=== PATIENT | female | born 1960 | race Caucasian/White ===

== ENCOUNTER → 2017-09-25 13:43 | Outpatient (CLI) | payer BC, SELFPAY ==
--- NOTE | 2017-09-25 | DI.MG.S_ITS ---
BILATERAL DIGITAL SCREENING MAMMOGRAM 3D/2D WITH CAD: 09/25/2017 CLINICAL: Routine screening. Family history of breast cancer. Comparison is made to exams dated: 04/18/2016 mammogram, 04/17/2015 mammogram, and 04/12/2014 mammogram - [facility]. The tissue of both breasts is predominantly fatty. Current study was also evaluated with a Computer Aided Detection (CAD) system. No significant masses, calcifications, or other findings are seen in either breast. There has been no significant interval change. IMPRESSION: NEGATIVE There is no mammographic evidence of malignancy. A 1 year screening mammogram is recommended. This exam was interpreted at Station ID: [id number]. NOTE: For mammograms, a report in lay terms will be sent to the patient. Approximately 15% of breast malignancies will not be visualized mammographically. In the management of a palpable breast mass, a negative mammogram must not discourage biopsy of a clinically suspicious lesion. Electronically Signed By: Ever horton/mirella:09/25/2017 15:28:19 copy to: Kole Perry letter sent: Normal Exam ACR BI-RADS Category 1: Negative [id number]
== END ==
PROVIDERS: PCP Family Medicine; Visit Provider Family Medicine
DX: Z12.31 Encounter for screening mammogram for malignant neoplasm of breast (principal); Z80.3 Family history of malignant neoplasm of breast
CPT/HCPCS: 77063; 77067

== ENCOUNTER → 2018-07-22 10:56 | Outpatient (CLI) | payer BC, SELFPAY ==
[2018-07-22 11:44] LABS: Add Manual Diff / Slide Review NO; Basophils Absolute Auto 0 /uL (0-100); Basophils Percent Auto 0.2 % (0-2); Eosinophils Absolute Auto 100 /uL (0-450); Eosinophils Percent Auto 2.4 % (2-4); Hemoglobin 14.7 g/dL (12.0-16.0); Lymphocytes Absolute Auto 1500 /uL (1100-4500); Lymphocytes Percent Auto 27.3 % (25-40); Mean Corpuscular HGB Conc 33.3 % (30-36); Mean Corpuscular Hemoglobin 29.5 PG (26-34); Mean Corpuscular Volume 88.6 fL (80-100); Monocytes Absolute Auto 400 /uL (0-900); Monocytes Percent Auto 7.5 % (3-14); Neutrophils Absolute Auto 3500 /uL (1500-7000); Neutrophils Percent Auto 62.6 % (50-75); Platelet Count 227 X10^3/uL (150-400); Red Blood Cell Count 4.96 X10^6/uL (4.0-5.2); Red Cell Distribution Width 13.8 % (11.6-14.8); White Blood Cell Count 5.5 X10^3/uL (4.5-11.0)
[2018-07-22 12:04] LABS: BUN Creatinine Ratio 17.1 (6-22); Blood Urea Nitrogen 12 mg/dL (7-17); Calcium 9.8 mg/dL (8.4-10.2); Carbon Dioxide 27 mmol/L (22-32); Chloride 101 mmol/L (98-107); Cholesterol 214 mg/dL (140-199); Estimated Glomerular Filt Rate > 60.0 mL/min (>60); Glucose 137 mg/dL (70-100); HDL Cholesterol 66 mg/dL (40-60); HEMOLYSIS < 15 (0-50); LDL Cholesterol Calculated 128 mg/dL (<100); Sodium 138 mmol/L (137-145); Triglycerides 99 mg/dL (35-150)
[2018-07-22 16:27] LABS: Creatinine Urine Random 66.9 mg/dL
[2018-07-22 16:45] LABS: Microalbumi Creatinin Ratio Ur 8.9 ug/mg CR (<30); Microalbumin Urine Random < 0.6 mg/dL (0-1.6)
== END ==
PROVIDERS: PCP Family Medicine; Visit Provider Registered Nurse
DX: I10 Essential (primary) hypertension (principal); R10.30 Lower abdominal pain, unspecified
CPT/HCPCS: 80048; 80061; 82043; 82570; 85025

== ENCOUNTER → 2018-08-27 11:38 | Outpatient (CLI) | payer BC, SELFPAY ==
[2018-08-27 12:20] LABS: Blood Urea Nitrogen 14 mg/dL (7-17); Calcium 9.8 mg/dL (8.4-10.2); Carbon Dioxide 24 mmol/L (22-32); Chloride 101 mmol/L (98-107); Estimated Glomerular Filt Rate > 60.0 mL/min (>60); Glucose 136 mg/dL (80-110); HEMOLYSIS < 15 (0-50); Potassium 3.9 mmol/L (3.4-5.1); Sodium 139 mmol/L (137-145)
== END ==
PROVIDERS: PCP Family Medicine; Visit Provider Registered Nurse
DX: I10 Essential (primary) hypertension (principal)
CPT/HCPCS: 36415; 80048

== ENCOUNTER → 2018-11-05 15:57 | Outpatient (CLI) | payer BC, SELFPAY ==
--- NOTE | 2018-11-05 15:59 | DI.RAD.S_ITS ---
PROCEDURE: XR WRIST LT MIN 3V INDICATIONS: Left wrist pain s/p fall TECHNIQUE: 4 views of the wrist were acquired. COMPARISON: None. FINDINGS: Bones: No fractures or dislocations. No suspicious bony lesions. Scaphoid view: Scaphoid is intact. Soft tissues: No suspicious soft tissue calcifications. IMPRESSION: No fracture. No osseous lesion. If symptoms and/or clinical suspicion for pathology persists, further assessment with repeat radiographs (7-10 days) or advanced imaging (e.g. CT, MRI or bone scan) may be helpful. Dictated by: Ashtyn Gunn MD, PhD on 11/05/2018 at 16:15 Approved by: Ashtyn Gunn MD, PhD on 11/05/2018 at 16:16
--- NOTE | 2018-11-05 15:59 | DI.RAD.S_ITS ---
PROCEDURE: XR HAND LT MIN 3V INDICATIONS: Left hand pain s/p fall TECHNIQUE: 3 views of the hand(s) acquired. COMPARISON: None. FINDINGS: Bones: No fractures or dislocations. Carpal bones are normally aligned. No suspicious bony lesions. Soft tissues: No suspicious soft tissue calcifications. IMPRESSION: No fracture. No osseous lesion. If symptoms and/or clinical suspicion for pathology persists, further assessment with repeat radiographs (7-10 days) or advanced imaging (e.g. CT, MRI or bone scan) may be helpful. Dictated by: Ashtyn Gunn MD, PhD on 11/05/2018 at 16:17 Approved by: Ashtyn Gunn MD, PhD on 11/05/2018 at 16:17
== END ==
PROVIDERS: PCP Family Medicine; Visit Provider Registered Nurse
DX: M79.642 Pain in left hand (principal); M25.532 Pain in left wrist
CPT/HCPCS: 73110; 73130

== ENCOUNTER → 2018-12-07 14:20 | Outpatient (CLI) | payer BC, SELFPAY | PROVIDERS: PCP Family Medicine; Visit Provider Family Medicine | DX: R30.0 Dysuria (principal); R31.9 Hematuria, unspecified | CPT/HCPCS: 87086 ==

== ENCOUNTER → 2018-12-22 15:34 | Outpatient (CLI) | payer BC, SELFPAY ==
--- NOTE | 2018-12-22 | DI.MG.S_ITS ---
BILATERAL DIGITAL SCREENING MAMMOGRAM 3D/2D WITH CAD: 12/22/2018 CLINICAL: Routine screening. Family history of breast cancer. Comparison is made to exams dated: 09/25/2017 mammogram, 04/18/2016 mammogram, 04/17/2015 mammogram, 04/12/2014 mammogram, and 04/07/2013 mammogram - [facility]. The tissue of both breasts is predominantly fatty. Current study was also evaluated with a Computer Aided Detection (CAD) system. No significant masses, calcifications, or other findings are seen in either breast. There has been no significant interval change. IMPRESSION: NEGATIVE There is no mammographic evidence of malignancy. A 1 year screening mammogram is recommended. This exam was interpreted at Station ID: [id number]. NOTE: For mammograms, a report in lay terms will be sent to the patient. Approximately 15% of breast malignancies will not be visualized mammographically. In the management of a palpable breast mass, a negative mammogram must not discourage biopsy of a clinically suspicious lesion. Electronically Signed By: Lamberto alonso/mirella:12/22/2018 19:56:02 copy to: Kole Perry letter sent: Normal Exam ACR BI-RADS Category 1: Negative 3341F
== END ==
PROVIDERS: PCP Family Medicine; Visit Provider Family Medicine
DX: Z12.31 Encounter for screening mammogram for malignant neoplasm of breast (principal); Z80.3 Family history of malignant neoplasm of breast
CPT/HCPCS: 77063; 77067

== ENCOUNTER → 2019-01-07 14:02 | Outpatient (CLI) | payer BC, SELFPAY ==
[2019-01-07 14:09] LABS: RBC Urine None Seen (0-5/HPF)
[2019-01-07 14:27] LABS: Appearance Urine UA CLEAR; Bilirubin Urine UA NEGATIVE (NEGATIVE); Color Urine UA YELLOW; Glucose Urine UA NEGATIVE (Negative); Ketones Urine UA NEGATIVE (NEGATIVE); Leukocyte Esterase Urine UA NEGATIVE (NEGATIVE); Nitrite Urine UA NEGATIVE (Negative); Occult Blood Urine UA NEGATIVE (Negative); Protein Urine UA NEGATIVE (Negative); Specific Gravity Urine UA <=1.005 (1.000-1.035); Urobilinogen Urine UA 0.2 E.U./dL (0.2)
[2019-01-07 14:35] LABS: pH Urine UA 5.5 (4.5-8.0)
[2019-01-07 14:36] LABS: Bacteria Urine Few (2-10); Culture Indicated Urine Cult Not Indicated; Squamous Epithelial Cell Urine 1-5 /HPF (0-5/HPF); WBC Urine 1-5/HPF (0-5/HPF)
[2019-01-07 15:56] LABS: Urine N gonorrhoeae NOT DETECTED
[2019-01-07 16:27] LABS: Urine Chlamydia NOT DETECTED
== END ==
PROVIDERS: PCP Family Medicine; Visit Provider Family Medicine
DX: R30.0 Dysuria (principal); R31.9 Hematuria, unspecified
CPT/HCPCS: 81001; 87491; 87591

== ENCOUNTER 2019-02-10 14:30 | Outpatient (RCR) | payer BC, SELFPAY ==
--- NOTE | 2018-11-03 16:00 | PT.OIE ---
Current Diagnoses Mixed incontinence (11/03/18) Past Medical History (Last Reviewed 09/24/18 @ 10:19 by MERLE Urrutia) Snoring (Chronic) Fatigue (Chronic) Obstructive sleep apnea of adult (Chronic) Degenerative disc disease (Acute ~1989) Colon polyps (Chronic ~2010) Hypothyroidism (Chronic ~2003) Melanoma (Chronic ~2005) Tinea pedis (Chronic ~1999) Chicken pox (Resolved ~1963) Shingles (Resolved ~1979) Past Surgical History (Last Reviewed 09/24/18 @ 10:19 by MERLE Urrutia) History of facelift (Acute) Status post appendectomy Status post cholecystectomy Provider Visit Care Team Role Provider Type Bonnie Kessler DO Primary Care Provider Physician Specialty: Family Practice Address: [facility] [facility] [place] [address] Email: [email or web address] MERLE Soto Attending Provider Advanced Beauty Artist Specialty: Medical Address: [facility] [place] [address], [id number] Email: Physical Therapy Initial Evaluation PT-OP-A Visit Information Start: 11/03/18 07:24 Freq: Status: Active Protocol: Document 11/03/18 09:00 AMB (Rec: 11/03/18 09:42 AMB [email or web address]) Out-Patient Physical Therapy Visit Information Visit Information Visit Type Initial Evaluation Visit Start Time 09:00 Visit Stop Time 09:40 Total Visit Minutes 40 Visit Number 1 PT-OP-B Current Condition Start: 11/03/18 07:24 Freq: Status: Active Protocol: Document 11/03/18 09:00 AMB (Rec: 11/03/18 16:11 AMB [email or web address]) Current Condition History of Current Condition Onset Date 3+ years ago Current Complaints stress urinary incontinence History of Current Condition Juany has had incontinence for at least 3 years and it has been getting worse recently. She notes it is the worst with moving from supine to sit ( which she does in a sit up fashion). She admits she does not drink much water, not really because she is purposefully trying to fluid restrict, but because she doesn't like water and doesn't think about drinking. Therefore she only voids 2-3 times in the day. She has had 3 vaginal deliveries with one episiotomy, she thinks she may have had leaking around that time. Treatment Goals Patient/Caregiver Goals be able to move from supine to sit without leaking Prior Functional Status Baseline Function- ADL's Independent Baseline Function- Mobility Independent Current Functional Impairments (Reported) Functional Limitations- ADL's wears panty liners due to leaking Personal Factors Other Personal Factors That May Effect hypertension, hypothyroid Therapy/Recovery PT-OP-C Subjective Start: 11/03/18 07:24 Freq: Status: Active Protocol: Document 11/03/18 09:00 AMB (Rec: 11/03/18 09:42 AMB [email or web address]) Patient Questionnaires Pelvic Pain and Urgency/Frequency Patient Symptom Scale Pelvic Pain Score 1 PT-OP-I Pelvic Floor Start: 11/03/18 07:24 Freq: Status: Active Protocol: Document 11/03/18 09:00 AMB (Rec: 11/03/18 09:46 AMB [email or web address]) Pelvic Floor Assessment Urine Urinary Symptoms Urge Sensation Leakage Size Small Leakage Cause Cough Lifting Sneeze Leaks Per Day 3 Voiding Frequency 2x/day Nocturia 1 Pads Used In 24 Hours 2 Urine Pad Type Panty Liner Bowel Other Bowel Symptoms denies constipation, does tend towards more loose stools Pelvic Clock Pelvic Clock Other no tenderness or guarding Prolapse Cystocele Grade 1 Rectocele Grade 2 Perineal Descent Resting Absent Bearing Present Contraction Ability Voluntary Contraction Weak Voluntary Relaxation Weak Manual Muscle Testing Left 1 Manual Muscle Testing Right 1 Manual Muscle Testing Anterior 1 Manual Muscle Testing Posterior 2 Muscle Endurance (Seconds) 4 Number of Quick Contractions In 10 4 Seconds Comments Pelvic Floor Comments increased white discharge, gaping labia majora PT-OP-T Assessment and Plan Start: 11/03/18 07:24 Freq: Status: Active Protocol: Document 11/03/18 09:00 AMB (Rec: 11/03/18 16:11 AMB [email or web address]) Physical Therapy Assessment Rehab Potential Rehabilitation Potential Good Evaluation Complexity Number of Personal Factors/Comorbidities 1-2 Number of Body Systems Impaired 1-2 Clinical Presentation at Evaluation Stable Impairments Impairments Functional Activities Strength Goals Two Impairment Pelvic floor strength Short Term Goal (STG) Deb will improve her pelvic floor strength to 3/5 in all planes. STG Duration 5 weeks Shelter Goal (LTG) Deb will perform a pelvic floor contraction while squatting. LTG Duration 10 weeks One Impairment Continence Short Term Goal (STG) Deb will laugh without leaking urine. STG Duration 5 weeks Shelter Goal (LTG) Deb will sit up from bed without leaking. LTG Duration 10 weeks Assessment Summary Assessment Deb attends physical therapy with stress urinary incontinence. During evaluation she did show cystocele and rectocele. She needed cues to be able to avoid excessive abdominal stabilization when performing pelvic floor contractions. She will benefit from pelvic floor strengthening to avoid further worsening of her prolapse and reduce her stress incontinence symptoms. Physical Therapy Plan Frequency and Duration Frequency of Treatment 1x/Week Duration of Treatment 10 weeks Plan of Care Start Date 11/03/18 Plan of Care End Date 01/12/19 Therapeutic Interventions Therapeutic Interventions Home Exercise Program Manual Therapy Neuromuscular Re-education Self-Care/Home Management Therapeutic Activities Therapeutic Exercises Modalities Biofeedback Electric Stimulation Next Visit Focus/Plan Next Note Type Treatment Note Next Visit Plan sEMG, progress pelvic floor strengthening
--- NOTE | 2018-11-03 16:11 | PT.OTN ---
Current Diagnoses Mixed incontinence (11/03/18) Physical Therapy Treatment Note PT-OP-A Visit Information Start: 11/03/18 07:24 Freq: Status: Active Protocol: Document 11/03/18 09:00 AMB (Rec: 11/03/18 09:42 AMB [email or web address]) Out-Patient Physical Therapy Visit Information Visit Information Visit Type Initial Evaluation Visit Start Time 09:00 Visit Stop Time 09:40 Total Visit Minutes 40 Visit Number 1 PT-OP-B Current Condition Start: 11/03/18 07:24 Freq: Status: Active Protocol: Document 11/03/18 09:00 AMB (Rec: 11/03/18 16:11 AMB [email or web address]) Current Condition History of Current Condition Onset Date 3+ years ago Current Complaints stress urinary incontinence History of Current Condition Juany has had incontinence for at least 3 years and it has been getting worse recently. She notes it is the worst with moving from supine to sit ( which she does in a sit up fashion). She admits she does not drink much water, not really because she is purposefully trying to fluid restrict, but because she doesn't like water and doesn't think about drinking. Therefore she only voids 2-3 times in the day. She has had 3 vaginal deliveries with one episiotomy, she thinks she may have had leaking around that time. Treatment Goals Patient/Caregiver Goals be able to move from supine to sit without leaking Prior Functional Status Baseline Function- ADL's Independent Baseline Function- Mobility Independent Current Functional Impairments (Reported) Functional Limitations- ADL's wears panty liners due to leaking Personal Factors Other Personal Factors That May Effect hypertension, hypothyroid Therapy/Recovery PT-OP-C Subjective Start: 11/03/18 07:24 Freq: Status: Active Protocol: Document 11/03/18 09:00 AMB (Rec: 11/03/18 09:42 AMB [email or web address]) Patient Questionnaires Pelvic Pain and Urgency/Frequency Patient Symptom Scale Pelvic Pain Score 1 PT-OP-I Pelvic Floor Start: 11/03/18 07:24 Freq: Status: Active Protocol: Document 11/03/18 09:00 AMB (Rec: 11/03/18 09:46 AMB [email or web address]) Pelvic Floor Assessment Urine Urinary Symptoms Urge Sensation Leakage Size Small Leakage Cause Cough Lifting Sneeze Leaks Per Day 3 Voiding Frequency 2x/day Nocturia 1 Pads Used In 24 Hours 2 Urine Pad Type Panty Liner Bowel Other Bowel Symptoms denies constipation, does tend towards more loose stools Pelvic Clock Pelvic Clock Other no tenderness or guarding Prolapse Cystocele Grade 1 Rectocele Grade 2 Perineal Descent Resting Absent Bearing Present Contraction Ability Voluntary Contraction Weak Voluntary Relaxation Weak Manual Muscle Testing Left 1 Manual Muscle Testing Right 1 Manual Muscle Testing Anterior 1 Manual Muscle Testing Posterior 2 Muscle Endurance (Seconds) 4 Number of Quick Contractions In 10 4 Seconds Comments Pelvic Floor Comments increased white discharge, gaping labia majora PT-OP-T Assessment and Plan Start: 11/03/18 07:24 Freq: Status: Active Protocol: Document 11/03/18 09:00 AMB (Rec: 11/03/18 16:11 AMB [email or web address]) Physical Therapy Assessment Rehab Potential Rehabilitation Potential Good Evaluation Complexity Number of Personal Factors/Comorbidities 1-2 Number of Body Systems Impaired 1-2 Clinical Presentation at Evaluation Stable Impairments Impairments Functional Activities Strength Goals Two Impairment Pelvic floor strength Short Term Goal (STG) Deb will improve her pelvic floor strength to 3/5 in all planes. STG Duration 5 weeks Mcfp Goal (LTG) Deb will perform a pelvic floor contraction while squatting. LTG Duration 10 weeks One Impairment Continence Short Term Goal (STG) Deb will laugh without leaking urine. STG Duration 5 weeks French Binding Folder Goal (LTG) Deb will sit up from bed without leaking. LTG Duration 10 weeks Assessment Summary Assessment Deb attends physical therapy with stress urinary incontinence. During evaluation she did show cystocele and rectocele. She needed cues to be able to avoid excessive abdominal stabilization when performing pelvic floor contractions. She will benefit from pelvic floor strengthening to avoid further worsening of her prolapse and reduce her stress incontinence symptoms. Physical Therapy Plan Frequency and Duration Frequency of Treatment 1x/Week Duration of Treatment 10 weeks Plan of Care Start Date 11/03/18 Plan of Care End Date 01/12/19 Therapeutic Interventions Therapeutic Interventions Home Exercise Program Manual Therapy Neuromuscular Re-education Self-Care/Home Management Therapeutic Activities Therapeutic Exercises Modalities Biofeedback Electric Stimulation Next Visit Focus/Plan Next Note Type Treatment Note Next Visit Plan sEMG, progress pelvic floor strengthening
--- NOTE | 2018-11-03 16:13 | PT.OPPOC ---
Current Diagnoses Mixed incontinence (11/03/18) Provider Visit Care Team Role Provider Type Bonnie Kessler DO Primary Care Provider Physician Specialty: Family Practice Address: [address] [place], [address] Email: [email or web address] MERLE Soto Attending Provider Advanced Newspaper Carriers Supervisor Specialty: Medical Address: [address], [address] Email: Plan Of Care PT-OP-T Assessment and Plan Start: 11/03/18 07:24 Freq: Status: Active Protocol: Document 11/03/18 09:00 AMB (Rec: 11/03/18 16:11 AMB [email or web address]) Physical Therapy Assessment Rehab Potential Rehabilitation Potential Good Evaluation Complexity Number of Personal Factors/Comorbidities 1-2 Number of Body Systems Impaired 1-2 Clinical Presentation at Evaluation Stable Impairments Impairments Functional Activities Strength Goals Two Impairment Pelvic floor strength Short Term Goal (STG) Deb will improve her pelvic floor strength to 3/5 in all planes. STG Duration 5 weeks Tire Retreader Goal (LTG) Deb will perform a pelvic floor contraction while squatting. LTG Duration 10 weeks One Impairment Continence Short Term Goal (STG) Deb will laugh without leaking urine. STG Duration 5 weeks Tire Retreader Goal (LTG) Deb will sit up from bed without leaking. LTG Duration 10 weeks Assessment Summary Assessment Deb attends physical therapy with stress urinary incontinence. During evaluation she did show cystocele and rectocele. She needed cues to be able to avoid excessive abdominal stabilization when performing pelvic floor contractions. She will benefit from pelvic floor strengthening to avoid further worsening of her prolapse and reduce her stress incontinence symptoms. Physical Therapy Plan Frequency and Duration Frequency of Treatment 1x/Week Duration of Treatment 10 weeks Plan of Care Start Date 11/03/18 Plan of Care End Date 01/12/19 Therapeutic Interventions Therapeutic Interventions Home Exercise Program Manual Therapy Neuromuscular Re-education Self-Care/Home Management Therapeutic Activities Therapeutic Exercises Modalities Biofeedback Electric Stimulation Next Visit Focus/Plan Next Note Type Treatment Note Next Visit Plan sEMG, progress pelvic floor strengthening Plan of Care Dates Plan of Care Start Date 11/03/18 Plan of Care End Date 01/12/19 Please Sign and Return: I have reviewed this Plan of Care and certify that the skilled therapy services above are required to meet the patient?s needs. Physician Signature Date Printed Name and Credentials Clinical Instructor Signature Printed Name and Credentials
--- NOTE | 2018-12-01 16:10 | PT.OTN ---
Current Diagnoses Mixed incontinence (12/01/18) Physical Therapy Treatment Note PT-OP-A Visit Information Start: 11/03/18 07:24 Freq: Status: Active Protocol: Document 12/01/18 14:30 AMB (Rec: 12/01/18 15:40 AMB [email or web address]) Out-Patient Physical Therapy Visit Information Visit Information Visit Type Treatment Note Visit Start Time 14:30 Visit Stop Time 15:15 Total Visit Minutes 40 Visit Number 2 PT-OP-B Current Condition Start: 11/03/18 07:24 Freq: Status: Active Protocol: Document 11/03/18 09:00 AMB (Rec: 11/03/18 16:11 AMB [email or web address]) Current Condition History of Current Condition Onset Date 3+ years ago Current Complaints stress urinary incontinence History of Current Condition Juany has had incontinence for at least 3 years and it has been getting worse recently. She notes it is the worst with moving from supine to sit ( which she does in a sit up fashion). She admits she does not drink much water, not really because she is purposefully trying to fluid restrict, but because she doesn't like water and doesn't think about drinking. Therefore she only voids 2-3 times in the day. She has had 3 vaginal deliveries with one episiotomy, she thinks she may have had leaking around that time. Treatment Goals Patient/Caregiver Goals be able to move from supine to sit without leaking Prior Functional Status Baseline Function- ADL's Independent Baseline Function- Mobility Independent Current Functional Impairments (Reported) Functional Limitations- ADL's wears panty liners due to leaking Personal Factors Other Personal Factors That May Effect hypertension, hypothyroid Therapy/Recovery PT-OP-C Subjective Start: 11/03/18 07:24 Freq: Status: Active Protocol: Document 12/01/18 14:30 AMB (Rec: 12/01/18 15:40 AMB [email or web address]) OP-PT Subjective Patient Comments Patient Comments Pt states she thinks she has noticed an improvement over the past month, but has had a hard time doing the exercises consistently. She is not noticing as much leaking with supine to sit but is still leaking with sneeze/laugh. PT-OP-I Pelvic Floor Start: 11/03/18 07:24 Freq: Status: Active Protocol: Document 11/03/18 09:00 AMB (Rec: 11/03/18 09:46 AMB [email or web address]) Pelvic Floor Assessment Urine Urinary Symptoms Urge Sensation Leakage Size Small Leakage Cause Cough Lifting Sneeze Leaks Per Day 3 Voiding Frequency 2x/day Nocturia 1 Pads Used In 24 Hours 2 Urine Pad Type Panty Liner Bowel Other Bowel Symptoms denies constipation, does tend towards more loose stools Pelvic Clock Pelvic Clock Other no tenderness or guarding Prolapse Cystocele Grade 1 Rectocele Grade 2 Perineal Descent Resting Absent Bearing Present Contraction Ability Voluntary Contraction Weak Voluntary Relaxation Weak Manual Muscle Testing Left 1 Manual Muscle Testing Right 1 Manual Muscle Testing Anterior 1 Manual Muscle Testing Posterior 2 Muscle Endurance (Seconds) 4 Number of Quick Contractions In 10 4 Seconds Comments Pelvic Floor Comments increased white discharge, gaping labia majora PT-OP-Q Treatments Start: 11/03/18 07:24 Freq: Status: Active Protocol: Document 12/01/18 14:30 AMB (Rec: 12/02/18 07:10 AMB [email or web address]) Therapeutic Exercises Supine Exercises 1 Supine Exercise Name roll in roll out Resistance #2 t band Comments 20 ea Neuro Re-Education Treatment Other Activities 1 Details quick flicks and long holds with sEMG Comments with focus on holding long holds, as pt tends to spike up and then quickly lose the hold. avg 7. PT-OP-T Assessment and Plan Start: 11/03/18 07:24 Freq: Status: Active Protocol: Document 12/01/18 14:30 AMB (Rec: 12/01/18 15:40 AMB [email or web address]) Physical Therapy Assessment Assessment Summary Assessment Deb tolerated roll in/roll out well, but standing is still difficult. Has to concentrate not to overuse TrA . Physical Therapy Plan Next Visit Focus/Plan Next Note Type Treatment Note Next Visit Plan sEMG, progress pelvic floor strengthening
--- NOTE | 2018-12-15 17:00 | PT.OTN ---
Current Diagnoses Mixed incontinence (12/15/18) Physical Therapy Treatment Note PT-OP-A Visit Information Start: 11/03/18 07:24 Freq: Status: Active Protocol: Document 12/15/18 14:30 AMB (Rec: 12/15/18 16:05 AMB [email or web address]) Out-Patient Physical Therapy Visit Information Visit Information Visit Type Treatment Note Visit Start Time 14:30 Visit Stop Time 15:15 Total Visit Minutes 40 Visit Number 3 PT-OP-B Current Condition Start: 11/03/18 07:24 Freq: Status: Active Protocol: Document 11/03/18 09:00 AMB (Rec: 11/03/18 16:11 AMB [email or web address]) Current Condition History of Current Condition Onset Date 3+ years ago Current Complaints stress urinary incontinence History of Current Condition Juany has had incontinence for at least 3 years and it has been getting worse recently. She notes it is the worst with moving from supine to sit ( which she does in a sit up fashion). She admits she does not drink much water, not really because she is purposefully trying to fluid restrict, but because she doesn't like water and doesn't think about drinking. Therefore she only voids 2-3 times in the day. She has had 3 vaginal deliveries with one episiotomy, she thinks she may have had leaking around that time. Treatment Goals Patient/Caregiver Goals be able to move from supine to sit without leaking Prior Functional Status Baseline Function- ADL's Independent Baseline Function- Mobility Independent Current Functional Impairments (Reported) Functional Limitations- ADL's wears panty liners due to leaking Personal Factors Other Personal Factors That May Effect hypertension, hypothyroid Therapy/Recovery PT-OP-C Subjective Start: 11/03/18 07:24 Freq: Status: Active Protocol: Document 12/15/18 14:30 AMB (Rec: 12/15/18 16:05 AMB [email or web address]) OP-PT Subjective Patient Comments Patient Comments Pt reports doing some exercises intermittently, but should be more consistent. Feels about the same. PT-OP-I Pelvic Floor Start: 11/03/18 07:24 Freq: Status: Active Protocol: Document 11/03/18 09:00 AMB (Rec: 11/03/18 09:46 AMB [email or web address]) Pelvic Floor Assessment Urine Urinary Symptoms Urge Sensation Leakage Size Small Leakage Cause Cough,Lifting,Sneeze Leaks Per Day 3 Voiding Frequency 2x/day Nocturia 1 Pads Used In 24 Hours 2 Urine Pad Type Panty Liner Bowel Other Bowel Symptoms denies constipation, does tend towards more loose stools Pelvic Clock Pelvic Clock Other no tenderness or guarding Prolapse Cystocele Grade 1 Rectocele Grade 2 Perineal Descent Resting Absent Bearing Present Contraction Ability Voluntary Contraction Weak Voluntary Relaxation Weak Manual Muscle Testing Left 1 Manual Muscle Testing Right 1 Manual Muscle Testing Anterior 1 Manual Muscle Testing Posterior 2 Muscle Endurance (Seconds) 4 Number of Quick Contractions In 10 4 Seconds Comments Pelvic Floor Comments increased white discharge, gaping labia majora PT-OP-Q Treatments Start: 11/03/18 07:24 Freq: Status: Active Protocol: Document 12/15/18 14:30 AMB (Rec: 12/16/18 13:02 AMB [email or web address]) Therapeutic Exercises Supine Exercises 1 Supine Exercise Name roll in roll out Resistance #2 t band Comments 20 ea Sitting Exercises 1 Sitting Exercise Name quick flicks, long holds Reps/Minutes 10 Neuro Re-Education Treatment Other Activities 1 Details quick flicks and long holds with sEMG Comments with focus on holding long holds, as pt tends to spike up and then quickly lose the hold. PT-OP-T Assessment and Plan Start: 11/03/18 07:24 Freq: Status: Active Protocol: Document 12/15/18 14:30 AMB (Rec: 12/16/18 13:02 AMB [email or web address]) Physical Therapy Assessment Assessment Summary Assessment Deb didn't progress extensively in the last 2 weeks, but her she is better aware of her pelvic floor. Physical Therapy Plan Next Visit Focus/Plan Next Note Type Treatment Note Next Visit Plan sEMG, progress pelvic floor strengthening
--- NOTE | 2018-12-29 15:44 | PT.OTN ---
Current Diagnoses Mixed incontinence (12/29/18) Physical Therapy Treatment Note PT-OP-A Visit Information Start: 11/03/18 07:24 Freq: Status: Active Protocol: Document 12/29/18 14:30 AMB (Rec: 12/29/18 15:44 AMB [email or web address]) Out-Patient Physical Therapy Visit Information Visit Information Visit Type Treatment Note Visit Start Time 14:30 Visit Stop Time 15:15 Total Visit Minutes 40 Visit Number 4 PT-OP-B Current Condition Start: 11/03/18 07:24 Freq: Status: Active Protocol: Document 11/03/18 09:00 AMB (Rec: 11/03/18 16:11 AMB [email or web address]) Current Condition History of Current Condition Onset Date 3+ years ago Current Complaints stress urinary incontinence History of Current Condition Juany has had incontinence for at least 3 years and it has been getting worse recently. She notes it is the worst with moving from supine to sit ( which she does in a sit up fashion). She admits she does not drink much water, not really because she is purposefully trying to fluid restrict, but because she doesn't like water and doesn't think about drinking. Therefore she only voids 2-3 times in the day. She has had 3 vaginal deliveries with one episiotomy, she thinks she may have had leaking around that time. Treatment Goals Patient/Caregiver Goals be able to move from supine to sit without leaking Prior Functional Status Baseline Function- ADL's Independent Baseline Function- Mobility Independent Current Functional Impairments (Reported) Functional Limitations- ADL's wears panty liners due to leaking Personal Factors Other Personal Factors That May Effect hypertension, hypothyroid Therapy/Recovery PT-OP-C Subjective Start: 11/03/18 07:24 Freq: Status: Active Protocol: Document 12/29/18 14:30 AMB (Rec: 12/29/18 15:44 AMB [email or web address]) OP-PT Subjective Patient Comments Patient Comments Pt has been better with consistency of exercise and has noticed improvement, instead of leaking 2-3x/day now she is leaking about 2-3x/ week. PT-OP-I Pelvic Floor Start: 11/03/18 07:24 Freq: Status: Active Protocol: Document 11/03/18 09:00 AMB (Rec: 11/03/18 09:46 AMB [email or web address]) Pelvic Floor Assessment Urine Urinary Symptoms Urge Sensation Leakage Size Small Leakage Cause Cough,Lifting,Sneeze Leaks Per Day 3 Voiding Frequency 2x/day Nocturia 1 Pads Used In 24 Hours 2 Urine Pad Type Panty Liner Bowel Other Bowel Symptoms denies constipation, does tend towards more loose stools Pelvic Clock Pelvic Clock Other no tenderness or guarding Prolapse Cystocele Grade 1 Rectocele Grade 2 Perineal Descent Resting Absent Bearing Present Contraction Ability Voluntary Contraction Weak Voluntary Relaxation Weak Manual Muscle Testing Left 1 Manual Muscle Testing Right 1 Manual Muscle Testing Anterior 1 Manual Muscle Testing Posterior 2 Muscle Endurance (Seconds) 4 Number of Quick Contractions In 10 4 Seconds Comments Pelvic Floor Comments increased white discharge, gaping labia majora PT-OP-Q Treatments Start: 11/03/18 07:24 Freq: Status: Active Protocol: Document 12/29/18 14:30 AMB (Rec: 12/29/18 15:22 AMB [id number]) Therapeutic Exercises Sitting Exercises 1 Sitting Exercise Name quick flicks, long holds Reps/Minutes 10 Standing Exercises 3 Standing Exercise Name sit to stand Comments with pelvic floor 2 Standing Exercise Name mini squat Comments with pelvic floor 1 Standing Exercise Name quick flicks long holds Comments WBOS and stride stance Other Exercises 1 Other Exercise Name quadruped UE extension Comments with pelvic floor contract PT-OP-T Assessment and Plan Start: 11/03/18 07:24 Freq: Status: Active Protocol: Document 12/29/18 14:30 AMB (Rec: 12/29/18 15:44 AMB [email or web address]) Physical Therapy Assessment Assessment Summary Assessment Progressed into standing and while challenging was doable. Physical Therapy Plan Next Visit Focus/Plan Next Note Type Treatment Note Next Visit Plan Progress into functional strengthening.
--- NOTE | 2019-02-10 15:25 | PT.OTN ---
Current Diagnoses Mixed incontinence (02/10/19) Physical Therapy Treatment Note PT-OP-A Visit Information Start: 11/03/18 07:24 Freq: Status: Active Protocol: Document 02/10/19 14:30 AMB (Rec: 02/10/19 15:22 AMB [email or web address]) Out-Patient Physical Therapy Visit Information Visit Information Visit Type Treatment Note Visit Start Time 14:30 Visit Stop Time 15:00 Total Visit Minutes 30 Visit Number 5 PT-OP-B Current Condition Start: 11/03/18 07:24 Freq: Status: Active Protocol: Document 11/03/18 09:00 AMB (Rec: 11/03/18 16:11 AMB [email or web address]) Current Condition History of Current Condition Onset Date 3+ years ago Current Complaints stress urinary incontinence History of Current Condition Juany has had incontinence for at least 3 years and it has been getting worse recently. She notes it is the worst with moving from supine to sit ( which she does in a sit up fashion). She admits she does not drink much water, not really because she is purposefully trying to fluid restrict, but because she doesn't like water and doesn't think about drinking. Therefore she only voids 2-3 times in the day. She has had 3 vaginal deliveries with one episiotomy, she thinks she may have had leaking around that time. Treatment Goals Patient/Caregiver Goals be able to move from supine to sit without leaking Prior Functional Status Baseline Function- ADL's Independent Baseline Function- Mobility Independent Current Functional Impairments (Reported) Functional Limitations- ADL's wears panty liners due to leaking Personal Factors Other Personal Factors That May Effect hypertension, hypothyroid Therapy/Recovery PT-OP-C Subjective Start: 11/03/18 07:24 Freq: Status: Active Protocol: Document 02/10/19 14:30 AMB (Rec: 02/10/19 15:22 AMB [email or web address]) OP-PT Subjective Patient Comments Patient Comments Deb reports she is now doing her exercises daily. She has been doing them in standing and has not been leaking. PT-OP-I Pelvic Floor Start: 11/03/18 07:24 Freq: Status: Active Protocol: Document 11/03/18 09:00 AMB (Rec: 11/03/18 09:46 AMB [email or web address]) Pelvic Floor Assessment Urine Urinary Symptoms Urge Sensation Leakage Size Small Leakage Cause Cough,Lifting,Sneeze Leaks Per Day 3 Voiding Frequency 2x/day Nocturia 1 Pads Used In 24 Hours 2 Urine Pad Type Panty Liner Bowel Other Bowel Symptoms denies constipation, does tend towards more loose stools Pelvic Clock Pelvic Clock Other no tenderness or guarding Prolapse Cystocele Grade 1 Rectocele Grade 2 Perineal Descent Resting Absent Bearing Present Contraction Ability Voluntary Contraction Weak Voluntary Relaxation Weak Manual Muscle Testing Left 1 Manual Muscle Testing Right 1 Manual Muscle Testing Anterior 1 Manual Muscle Testing Posterior 2 Muscle Endurance (Seconds) 4 Number of Quick Contractions In 10 4 Seconds Comments Pelvic Floor Comments increased white discharge, gaping labia majora PT-OP-Q Treatments Start: 11/03/18 07:24 Freq: Status: Active Protocol: Document 02/10/19 14:30 AMB (Rec: 02/10/19 15:22 AMB [email or web address]) Therapeutic Exercises Sitting Exercises 1 Sitting Exercise Name quick flicks, long holds Reps/Minutes 10 Standing Exercises 3 Standing Exercise Name sit to stand Comments with pelvic floor 2 Standing Exercise Name mini squat Comments with pelvic floor 1 Standing Exercise Name quick flicks long holds Comments WBOS and stride stance PT-OP-T Assessment and Plan Start: 11/03/18 07:24 Freq: Status: Active Protocol: Document 02/10/19 14:36 AMB (Rec: 02/10/19 15:09 AMB [id number]) Physical Therapy Assessment Goals Two Impairment Pelvic floor strength Short Term Goal (STG) Deb will improve her pelvic floor strength to 3/5 in all planes. STG Duration 5 weeks Halfway Goal (LTG) Deb will perform a pelvic floor contraction while squatting. LTG Duration MET One Impairment Continence Short Term Goal (STG) Deb will laugh without leaking urine. STG Duration MET Ship Unloader Goal (LTG) Deb will sit up from bed without leaking. LTG Duration MET Assessment Summary Assessment Deb has not noticed leaking lately. She feels that she can now independently continue with her exercises. She has met her goals and feels ready to be discharged at this time. 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 Physical Therapy Plan Discharge Physical Therapy Discharge Reasons Goals Met
--- NOTE | 2019-02-10 15:30 | PT.OPPOC ---
Current Diagnoses Mixed incontinence (02/10/19) Visit Care Team Role Provider Type Bonnie Kessler DO Primary Care Provider Physician Specialty: Family Practice Address: [address], [facility] [place], [address] Email: [email or web address] MERLE Soto Attending Provider Advanced Pole Tester Specialty: Medical Address: [place], [address] Email: [email or web address] Plan Of Care PT-OP-T Assessment and Plan Start: 11/03/18 07:24 Freq: Status: Active Protocol: Document 02/10/19 14:36 AMB (Rec: 02/10/19 15:09 AMB [id number]) Physical Therapy Assessment Goals Two Impairment Pelvic floor strength Short Term Goal (STG) Deb will improve her pelvic floor strength to 3/5 in all planes. STG Duration 5 weeks Jail Goal (LTG) Deb will perform a pelvic floor contraction while squatting. LTG Duration MET One Impairment Continence Short Term Goal (STG) Deb will laugh without leaking urine. STG Duration MET Jail Goal (LTG) Deb will sit up from bed without leaking. LTG Duration MET Assessment Summary Assessment Deb has not noticed leaking lately. She feels that she can now independently continue with her exercises. She has met her goals and feels ready to be discharged at this time. She was encouraged to continue with exercises for the retirement. Physical Therapy Plan Frequency and Duration Frequency of Treatment 1 visit Duration of Treatment 1 week Plan of Care Start Date 02/10/19 Plan of Care End Date 02/17/19 Therapeutic Interventions Therapeutic Interventions Home Exercise Program,Manual Therapy,Neuromuscular Re- education,Self-Care/Home Management,Therapeutic Activities,Therapeutic Exercises Modalities Biofeedback,Electric Stimulation Discharge Physical Therapy Discharge Reasons Goals Met Plan of Care Dates Plan of Care Start Date 02/10/19 Plan of Care End Date 02/17/19
== END 2019-02-16 15:43 | disposition home or self-care (01) ==
LOC: PHYS 14:30
PROVIDERS: PCP Family Medicine; Visit Provider Registered Nurse
DX: N39.46 Mixed incontinence (principal)
CPT/HCPCS: 97110; 97112; 97161

== ENCOUNTER → 2019-03-23 16:19 | Outpatient (CLI) | payer BC, SELFPAY ==
[2019-03-23 20:08] LABS: BUN Creatinine Ratio 26.3 (6-22); Blood Urea Nitrogen 21 mg/dL (7-17); Calcium 10.1 mg/dL (8.4-10.2); Carbon Dioxide 28 mmol/L (22-32); Chloride 101 mmol/L (98-107); Estimated Glomerular Filt Rate > 60.0 mL/min (>60); Glucose 88 mg/dL (80-110); HEMOLYSIS < 15 (0-50); Sodium 139 mmol/L (137-145)
[2019-03-23 20:34] LABS: TSH w/ Reflex to FT4 1.46 uIU/mL (0.47-4.68)
== END ==
PROVIDERS: PCP Family Medicine; Visit Provider Family Medicine
DX: E03.9 Hypothyroidism, unspecified (principal); I10 Essential (primary) hypertension
CPT/HCPCS: 36415; 80048; 84443

== ENCOUNTER → 2020-03-13 11:16 | Outpatient (CLI) | payer OTHER, SELFPAY ==
--- NOTE | 2020-03-13 | DI.MG.S_ITS ---
BILATERAL DIGITAL SCREENING MAMMOGRAM 3D/2D WITH CAD: 03/13/2020 CLINICAL: Routine screening. Comparison is made to exams dated: 12/22/2018 mammogram, 09/25/2017 mammogram, and 04/18/2016 mammogram - [facility]. The tissue of both breasts is predominantly fatty. Current study was also evaluated with a Computer Aided Detection (CAD) system. No significant masses, calcifications, or other findings are seen in either breast. There has been no significant interval change. IMPRESSION: NEGATIVE There is no mammographic evidence of malignancy. A 1 year screening mammogram is recommended. This exam was interpreted at Station ID: [id number]. NOTE: For mammograms, a report in lay terms will be sent to the patient. Approximately 15% of breast malignancies will not be visualized mammographically. In the management of a palpable breast mass, a negative mammogram must not discourage biopsy of a clinically suspicious lesion. Electronically Signed By: Shannon collier/mirella:03/20/2020 11:11:56 letter sent: Normal Exam ACR BI-RADS Category 1: Negative 3341F
== END ==
PROVIDERS: PCP Family Medicine; Referring Provider Family Medicine; Visit Provider Family Medicine
DX: Z12.31 Encounter for screening mammogram for malignant neoplasm of breast (principal)
CPT/HCPCS: 77063; 77067

== ENCOUNTER → 2020-05-09 08:55 | Outpatient (CLI) | payer OTHER, SELFPAY ==
[2020-05-09 09:46] LABS: Add Manual Diff / Slide Review NO; Basophils Absolute Auto 0 /uL (0-100); Basophils Percent Auto 0.6 % (0-2); Eosinophils Absolute Auto 100 /uL (0-450); Eosinophils Percent Auto 2.6 % (2-4); Hematocrit 42.1 % (36-46); Lymphocytes Absolute Auto 1600 /uL (1100-4500); Lymphocytes Percent Auto 35.4 % (25-40); Mean Corpuscular HGB Conc 33.3 % (30-36); Mean Corpuscular Hemoglobin 30.8 PG (26-34); Mean Corpuscular Volume 92.5 fL (80-100); Monocytes Absolute Auto 300 /uL (0-900); Monocytes Percent Auto 7.1 % (3-14); Neutrophils Absolute Auto 2500 /uL (1500-7000); Neutrophils Percent Auto 54.3 % (50-75); Platelet Count 173 X10^3/uL (150-400); Red Blood Cell Count 4.55 X10^6/uL (4.0-5.2); Red Cell Distribution Width 14.3 % (11.6-14.8); White Blood Cell Count 4.5 X10^3/uL (4.5-11.0)
[2020-05-09 10:00] LABS: Alanine Aminotransferase 43 IU/L (<35); Albumin 4.5 g/dL (3.5-5.0); Albumin Globulin Ratio 1.3 (1.0-2.8); Alkaline Phosphatase 61 U/L (38-126); Aspartate Aminotransferase 86 IU/L (14-36); BUN Creatinine Ratio 19.2 (6-22); Bilirubin Total 1.3 mg/dL (0.2-1.3); Blood Urea Nitrogen 14 mg/dL (7-17); Calcium 9.3 mg/dL (8.4-10.2); Carbon Dioxide 27 mmol/L (22-32); Chloride 105 mmol/L (98-107); Cholesterol 238 mg/dL (140-199); Estimated Glomerular Filt Rate > 60.0 mL/min (>60); Globulin 3.4 g/dL (1.7-4.1); Glucose 108 mg/dL (80-110); HDL Cholesterol 79 mg/dL (40-60); HEMOLYSIS < 15 (0-50); LDL Cholesterol Calculated 139 mg/dL (<100); Potassium 4.1 mmol/L (3.4-5.1); Sodium 137 mmol/L (137-145); Total Protein 7.9 g/dL (6.3-8.2); Triglycerides 98 mg/dL (35-150)
[2020-05-09 11:02] LABS: Thyroid Stimulating Hormone 1.45 uIU/mL (0.47-4.68)
== END ==
PROVIDERS: PCP Family Medicine; Referring Provider Family Medicine; Visit Provider Family Medicine
DX: E03.9 Hypothyroidism, unspecified (principal); E78.5 Hyperlipidemia, unspecified; G47.33 Obstructive sleep apnea (adult) (pediatric); I10 Essential (primary) hypertension
CPT/HCPCS: 36415; 80053; 80061; 84443; 85025

== ENCOUNTER → 2021-03-27 17:00 | Outpatient (CLI) | payer OTHER, SELFPAY ==
--- NOTE | 2021-03-27 | DI.MG.S_ITS ---
BILATERAL DIGITAL SCREENING MAMMOGRAM 3D/2D WITH CAD: 03/27/2021 CLINICAL: Routine screening. Comparison is made to exams dated: 03/13/2020 mammogram, 12/22/2018 mammogram, and 09/25/2017 mammogram - . The tissue of both breasts is predominantly fatty. Current study was also evaluated with a Computer Aided Detection (CAD) system. There is an oval asymmetry in the left breast middle depth superior region seen on the mediolateral oblique view only. This is increased in size. No other significant masses, calcifications, or other findings are seen in either breast. IMPRESSION: INCOMPLETE: NEEDS ADDITIONAL IMAGING EVALUATION The oval asymmetry in the left breast is indeterminate. Additional views with possible ultrasound are recommended. This exam was interpreted at Station ID: [id number]. NOTE: For mammograms, a report in lay terms will be sent to the patient. Approximately 15% of breast malignancies will not be visualized mammographically. In the management of a palpable breast mass, a negative mammogram must not discourage biopsy of a clinically suspicious lesion. Electronically Signed By: Altagracia fontanez/mirella:03/28/2021 09:13:05 letter sent: Additional Imaging Needed ACR BI-RADS Category 0: Incomplete 3340F
== END ==
PROVIDERS: PCP Family Medicine; Referring Provider Family Medicine; Visit Provider Family Medicine
DX: Z12.31 Encounter for screening mammogram for malignant neoplasm of breast (principal)
CPT/HCPCS: 77063; 77067

== ENCOUNTER → 2021-04-26 11:55 | Outpatient (CLI) | payer OTHER, SELFPAY ==
--- NOTE | 2021-04-26 11:55 | DI.US.S_ITS ---
ULTRASOUND OF LEFT BREAST: 04/26/2021 CLINICAL: Patient returns today to evaluate an asymmetry in the left breast. Comparison is made to exams dated: 04/26/2021 mammogram, 03/27/2021 mammogram, 03/13/2020 mammogram, 12/22/2018 mammogram, 09/25/2017 mammogram, and 04/18/2016 mammogram - [facility]. Color flow and Doppler ultrasound of the left breast were performed. No abnormality which corresponds with the mammographic abnormality is seen. IMPRESSION: NEGATIVE There is no sonographic evidence of malignancy. The mammographic finding is stable compared to prior mammograms but is more obvious with newer tomograms, but is stable and has no US correlate, and is consistent with a focal area of breast tissue. A 1 year screening mammogram is recommended. This exam was interpreted at Station ID: [id number]. Electronically Signed By: Sina George acr/:04/26/2021 13:20:00 letter sent: Normal Exam Ultrasound BI-RADS: 1 Negative
--- NOTE | 2021-04-26 11:55 | DI.MG.S_ITS ---
UNILATERAL LEFT DIGITAL DIAGNOSTIC MAMMOGRAM 3D/2D WITH ADDITIONAL VIEWS: 04/26/2021 CLINICAL: Additional evaluation requested from prior study. Comparison is made to exams dated: 03/27/2021 mammogram, 03/13/2020 mammogram, and 12/22/2018 mammogram - . The tissue of left breast is predominantly fatty. There is a mass in the left breast seen on the craniocaudal view only. There also is a stable oval asymmetry in the left breast middle depth superior region seen on the mediolateral oblique view only. No other significant masses or calcifications are seen in the breast. IMPRESSION: INCOMPLETE: NEEDS ADDITIONAL IMAGING EVALUATION The stable oval asymmetry in the left breast middle depth superior region seen on the mediolateral oblique view only is indeterminate. An ultrasound is recommended. This exam was interpreted at Station ID: [id number]. NOTE: For mammograms, a report in lay terms will be sent to the patient. Approximately 15% of breast malignancies will not be visualized mammographically. In the management of a palpable breast mass, a negative mammogram must not discourage biopsy of a clinically suspicious lesion. Electronically Signed By: Sina George acr/:04/26/2021 13:17:23 Entry: cm - 04/29/2021 09:53:31 ACR BI-RADS Category 0: Incomplete 3340F
== END ==
PROVIDERS: PCP Family Medicine; Referring Provider Family Medicine; Visit Provider Family Medicine
DX: R92.8 Other abnormal and inconclusive findings on diagnostic imaging of breast (principal); N64.89 Other specified disorders of breast
CPT/HCPCS: 76642; 77065; G0279

== ENCOUNTER → 2021-08-14 15:24 | Outpatient (CLI) | payer OTHER, SELFPAY ==
[2021-08-14 16:03] LABS: COVID19 -Nasal RAPID Negative (Negative)
== END ==
PROVIDERS: PCP Family Medicine; Visit Provider Surgery
DX: Z01.812 Encounter for preprocedural laboratory examination (principal); Z20.822 Contact with and (suspected) exposure to COVID-19
CPT/HCPCS: 87635; C9803

== ENCOUNTER 2021-08-15 13:04 | Day surgery (SDC) | payer OTHER, SELFPAY ==
--- NOTE | 2021-08-15 | PATH_ITS ---
[facility] Accession Number: [id number] . 01 Material submitted: . PART A: colon - CECUM POLYPS X2 PART B: colon - SIGMOID COLON POLYP . 02 Diagnosis: A. Cecum, Polyps x2, Biopsies: Sessile serrated adenomas. . B. Sigmoid Colon, Polyp, Biopsy: Serrated lesion with dilated crypt bases, favor sessile serrated adenoma. MRV 08/21/2021 1159 Local . 02 Electronically signed: . Irene Del Valle MD, Pathologist NPI- [id number] . 01 Gross description: . Part A: CECUM POLYPS X2: Received in formalin are 4 fragment(s) of lamb, soft tissue measuring 1.0 x 0.5 x 0.3 cm to 0.5 x 0.1 x 0.1 cm submitted entirely in 1 cassette(s) Part B: SIGMOID COLON POLYP: Received in formalin is 1 fragment(s) of lamb, soft tissue measuring 0.4 x 0.3 x 0.1 cm submitted entirely in 1 cassette(s) /CPE 08/16/2021 0632 Local . 02 Pathologist provided ICD-10: D12.0, D12.5 . 02 CPT . 554034, [id number] Performed at: [address] [facility] [address], [place], [place] [id number] MD Panda Naranjo MD Phone: [phone] Performed at: 02 [facility] [address] [place], [place] [id number] MD Irene Del Valle MD Phone: [phone]
[2021-08-15 13:15] VITALS: BP 137/85; PULSE 80; RESP 14; TEMP 36.2; O2SAT 96
[2021-08-15 13:17] VITALS: BMI 29.2
--- NOTE | 2021-08-15 13:38 | PM.HP.1 ---
History of Present Illness History of Present Illness Date Patient Seen: 08/15/21 Time Patient Seen: 13:38 Chief complaint: SDC Narrative: Juany is a 61-year-old woman who is overdue for a colonoscopy. She believes her last colonoscopy was about 7 years ago and polyps were found. She does have sleep apnea and uses a CPAP at night. Patient History Medical History (Updated 08/15/21 @ 13:40 by Niranjan Whalen MD) Chicken pox (~1963) Colon polyps (~2010) Degenerative disc disease (~1989) Eustachian tube dysfunction Hypothyroidism (~2003) Melanoma (~2005) Obstructive sleep apnea of adult Shingles (~1979) Tinea pedis (~1999) Surgical History History of facelift Status post appendectomy Status post cholecystectomy Family & Social History Family History Brother Age: 62 CAD (coronary artery disease) Heart disease Hx of heart artery stent Child Hypertension Father Alcoholism Stroke Cancer Grandfather No problems noted. Mother No problems noted. Family/Other No problems noted. Social History: household members family lives independently Yes caregiver/support person No Tobacco & Substance use: Smoking Status Never smoker alcohol intake former alcohol intake frequency other Substance Use Type marijuana Meds Home Medications and Allergies Home Medications Medication Instructions Recorded Confirmed Type Respironics Dreamstation CPAP #1 ea 12/07/18 12/07/18 History levothyroxine 25 mcg tablet 25 mcg PO QDAY #90 tab 07/03/20 08/15/21 Rx (Synthroid) losartan 50 mg tablet 50 mg PO DAILY #90 tab 07/03/20 08/15/21 Rx conj estrogen-medroxyprogesterone See Rx Instructions .ROUTE 05/08/21 08/15/21 Rx 0.3 mg-1.5 mg tablet (Prempro) .COMPLEX #28 tab Allergies Allergy/AdvReac Type Severity Reaction Status Date / Time No Known Drug Allergies Allergy Verified 08/15/21 13:12 Exam Vital Signs (past 8 hours): - 08/15/21 13:15 Temperature 97.2 F L Pulse Rate 80 Respiratory Rate 14 Blood Pressure 137/85 Pulse Oximetry 96 Oxygen Delivery Method Room Air Const General: No acute distress Resp Effort & Inspection: normal respiratory effort GI Palpation: soft Assessment & Plan Assessment and plan (1) History of colon polyps: Status: Acute Plan 61-year-old woman here for screening colonoscopy. Risks and benefits reviewed she would like to proceed. COVID-19 COVID-19 status: Negative Result date/Date tested (Pos, Neg/Pending): 08/14/21 Time Spent With Patient Critical Care time: I spent a total of [] minutes of critical care time on this patient's care today; this time is exclusive of procedural time.
[2021-08-15] MEDS: LACTATED RINGERS 1,000 ML 42 ML IV (13:48)
--- NOTE | 2021-08-15 14:49 | PM.OP.COLON ---
Operative Date/Time/Diagnoses Date of procedure: 08/15/21 Time of procedure: 14:49 Pre-op diagnosis: History of colon polyps Post-op diagnosis: same Procedure & Clinicians Study performed: Colonoscopy with MAC performed by Dr. Lee Same procedure as scheduled: Yes Surgeon: Niranjan Whalen Procedure Notes Procedure in detail: Procedure: The patient was brought to the endoscopy suite, placed in left lateral decubitus position. The patient was connected to monitoring devices. A time-out was performed. Sedation was administered. Once the patient was adequately sedated, a digital rectal exam was performed and was normal. The scope was then inserted and advanced to the cecum where the appendiceal orifice was identified and photographed. There was a large flat polyp, approximately 1.3 cm that was adjacent to the ileocecal valve. This was lifted with a saline lift and removed with the 10 mm hot snare. The polyp was taken off in 2 snare rings using cautery. The larger of the pieces was divided with the snare so that it could be suctioned into the trap. There was another smaller polyp roughly 8 mm, also in the cecum which was removed with cold snare and sent in the same specimen container labeled 'cecal polyp?. The scope was then slowly withdrawn. Another polyp was seen in the sigmoid colon, roughly 5 mm, and removed with forceps. There were scattered diverticula, mostly in the sigmoid colon. The scope was retroflexed in the rectum. No abnormalities were noted. The scope was straightened and removed. The patient was awakened and brought to recovery. EBL: 10 mL Findings: 1.3 cm flat polyp in the cecum and a 8 mm polyp in cecum and a small small 5 mm polyp in the sigmoid colon. Post-procedure Recommendations: Will call with biopsy results Disposition: PACU
[2021-08-15 14:50] VITALS: BP 118/71; PULSE 83; RESP 11; TEMP 36.7; O2SAT 94
[2021-08-15 14:56] VITALS: BP 128/83; PULSE 72; RESP 26; O2SAT 95
[2021-08-15 15:00] VITALS: BP 126/83; PULSE 73; RESP 18; TEMP 36; O2SAT 96
== END 2021-08-15 15:31 | disposition home or self-care (01) ==
PROVIDERS: PCP Family Medicine; Referring Provider Surgery; Visit Provider Surgery
PROC: 0DJD8ZZ Inspection of Lower Intestinal Tract, Via Natural or Artificial Opening Endoscopic (ICD-10-PCS; CPT 45378; principal; 2021-08-15 14:30)
DX: Z12.11 Encounter for screening for malignant neoplasm of colon (principal); Z86.010 Personal history of colon polyps; G47.33 Obstructive sleep apnea (adult) (pediatric); K57.30 Diverticulosis of large intestine without perforation or abscess without bleeding; D12.0 Benign neoplasm of cecum; D12.5 Benign neoplasm of sigmoid colon
CPT/HCPCS: 45384; 45380; 45381; J2250; J2704; J3010

== ENCOUNTER → 2022-04-28 14:08 | Outpatient (CLI) | payer OTHER, SELFPAY ==
--- NOTE | 2022-04-28 | DI.MG.S_ITS ---
BILATERAL DIGITAL SCREENING MAMMOGRAM 3D/2D WITH CAD: 04/28/2022 CLINICAL: Routine screening. Family history of breast cancer. Comparison is made to exams dated: 03/27/2021 mammogram, 03/13/2020 mammogram, and 12/22/2018 mammogram - [facility]. There are scattered areas of fibroglandular density in both breasts (category b / 25%-50% glandular tissue). Current study was also evaluated with a Computer Aided Detection (CAD) system. No significant masses, calcifications, or other findings are seen in either breast. There has been no significant interval change. IMPRESSION: NEGATIVE There is no mammographic evidence of malignancy. A 1 year screening mammogram is recommended. Based on the Tyrer Cuzick model (a risk assessment model) the patient's lifetime risk is 12.7% and her 10 year risk is 5.8%. According to the ACR, ACS, and NCCN guidelines, an annual breast MRI exam along with mammogram is recommended if the patient's lifetime risk is 20% or greater. This exam was interpreted at Station ID: [id number]. NOTE: For mammograms, a report in lay terms will be sent to the patient. Approximately 15% of breast malignancies will not be visualized mammographically. In the management of a palpable breast mass, a negative mammogram must not discourage biopsy of a clinically suspicious lesion. Electronically Signed By: Pardeep meng/mirella:04/28/2022 15:29:31 letter sent: Normal Exam ACR BI-RADS Category 1: Negative 3341F
== END ==
PROVIDERS: PCP Family Medicine; Referring Provider Family Medicine; Visit Provider Family Medicine
DX: Z12.31 Encounter for screening mammogram for malignant neoplasm of breast (principal); Z80.3 Family history of malignant neoplasm of breast
CPT/HCPCS: 77063; 77067

== ENCOUNTER → 2022-08-14 11:33 | Outpatient (CLI) | payer OTHER, SELFPAY ==
[2022-08-14 13:08] LABS: Add Manual Diff / Slide Review NO; Basophils Absolute Auto 0 /uL (0-100); Basophils Percent Auto 0.6 % (0-2); Eosinophils Absolute Auto 100 /uL (0-450); Eosinophils Percent Auto 1.3 % (2-4); Hematocrit 41.3 % (36-46); Hemoglobin 14.2 g/dL (12.0-16.0); Lymphocytes Absolute Auto 1500 /uL (1100-4500); Lymphocytes Percent Auto 36.1 % (25-40); Mean Corpuscular HGB Conc 34.3 % (30-36); Mean Corpuscular Hemoglobin 30.6 PG (26-34); Mean Corpuscular Volume 89.2 fL (80-100); Monocytes Absolute Auto 400 /uL (0-900); Monocytes Percent Auto 9.6 % (3-14); Neutrophils Absolute Auto 2200 /uL (1500-7000); Neutrophils Percent Auto 52.4 % (50-75); Platelet Count 149 X10^3/uL (150-400); Red Blood Cell Count 4.63 X10^6/uL (4.0-5.2); White Blood Cell Count 4.1 X10^3/uL (4.5-11.0)
[2022-08-14 13:31] LABS: Alanine Aminotransferase 45 IU/L (<35); Albumin 4.6 g/dL (3.5-5.0); Albumin Globulin Ratio 1.3 (1.0-2.8); Alkaline Phosphatase 68 U/L (38-126); Aspartate Aminotransferase 61 IU/L (14-36); BUN Creatinine Ratio 17.1 (6-22); Bilirubin Total 1.4 mg/dL (0.2-1.3); Blood Urea Nitrogen 13 mg/dL (7-17); Calcium 9.3 mg/dL (8.4-10.2); Carbon Dioxide 25 mmol/L (22-32); Chloride 103 mmol/L (98-107); Cholesterol 215 mg/dL (140-199); Estimated Glomerular Filt Rate > 60 mL/min (>60); Globulin 3.5 g/dL (1.7-4.1); Glucose 114 mg/dL (80-110); HDL Cholesterol 72 mg/dL (40-60); HEMOLYSIS < 15 (0-50); LDL Cholesterol Calculated 129 mg/dL (<100); Potassium 4.1 mmol/L (3.4-5.1); Sodium 138 mmol/L (137-145); Total Protein 8.1 g/dL (6.3-8.2); Triglycerides 70 mg/dL (35-150)
[2022-08-14 14:32] LABS: TSH w/ Reflex to FT4 0.53 uIU/mL (0.47-4.68)
[2022-08-19 05:12] LABS: x Labcorp Estim. Avg Glu (eAG) 120 mg/dL (.); x Labcorp Hemoglobin A1c 5.8 % (4.8-5.6)
== END ==
PROVIDERS: PCP Family Medicine; Referring Provider Family Medicine; Visit Provider Family Medicine
DX: E03.9 Hypothyroidism, unspecified (principal); E78.5 Hyperlipidemia, unspecified; I10 Essential (primary) hypertension
CPT/HCPCS: 36415; 80053; 80061; 83036; 84443; 85025

== ENCOUNTER → 2023-04-30 14:35 | Outpatient (CLI) | payer OTHER, SELFPAY ==
--- NOTE | 2023-04-30 | DI.MG.S_ITS ---
BILATERAL DIGITAL SCREENING MAMMOGRAM 3D/2D WITH CAD: 04/30/2023 CLINICAL: Routine screening. Family history of breast cancer. Comparison is made to exams dated: 04/28/2022 mammogram, 04/26/2021 mammogram, 03/27/2021 mammogram, and 03/13/2020 mammogram - [facility]. Both breasts are almost entirely fatty (category a/<25% glandular tissue). Current study was also evaluated with a Computer Aided Detection (CAD) system. No significant masses, calcifications, or other findings are seen in either breast. There has been no significant interval change. IMPRESSION: NEGATIVE There is no mammographic evidence of malignancy. A 1 year screening mammogram is recommended. Based on the Tyrer Cuzick model (a risk assessment model) the patient's lifetime risk is 8.2% and her 10 year risk is 3.8%. According to the ACR, ACS, and NCCN guidelines, an annual breast MRI exam along with mammogram is recommended if the patient's lifetime risk is 20% or greater. This exam was interpreted at Station ID: [id number]. NOTE: For mammograms, a report in lay terms will be sent to the patient. Approximately 15% of breast malignancies will not be visualized mammographically. In the management of a palpable breast mass, a negative mammogram must not discourage biopsy of a clinically suspicious lesion. Electronically Signed By: Neri boyce/mirella:04/30/2023 15:33:02 letter sent: Normal Exam ACR BI-RADS Category 1: Negative [id number]
== END ==
LOC: MAMMO 14:35
PROVIDERS: PCP Family Medicine; Referring Provider Family Medicine; Visit Provider Family Medicine
DX: Z12.31 Encounter for screening mammogram for malignant neoplasm of breast (principal); Z80.3 Family history of malignant neoplasm of breast
CPT/HCPCS: 77063; 77067

== ENCOUNTER → 2024-03-16 14:30 | Outpatient (CLI) | payer MEDICARE, OTHER, SELFPAY ==
[2024-03-16 15:33] LABS: Add Manual Diff / Slide Review NO; Basophils Absolute Auto 0 /uL (0-100); Basophils Percent Auto 0.4 % (0-2); Eosinophils Absolute Auto 100 /uL (0-450); Eosinophils Percent Auto 1.8 % (2-4); Hematocrit 42.4 % (36-46); Hemoglobin 14.3 g/dL (12.0-16.0); Lymphocytes Absolute Auto 2000 /uL (1100-4500); Lymphocytes Percent Auto 33.7 % (25-40); Mean Corpuscular HGB Conc 33.7 % (30-36); Mean Corpuscular Hemoglobin 30.1 PG (26-34); Mean Corpuscular Volume 89.4 fL (80-100); Monocytes Absolute Auto 500 /uL (0-900); Monocytes Percent Auto 7.7 % (3-14); Neutrophils Absolute Auto 3300 /uL (1500-7000); Neutrophils Percent Auto 56.4 % (50-75); Platelet Count 179 X10^3/uL (150-400); Red Blood Cell Count 4.74 X10^6/uL (4.0-5.2); Red Cell Distribution Width 13.7 % (11.6-14.8); White Blood Cell Count 5.9 X10^3/uL (4.5-11.0)
[2024-03-16 15:59] LABS: Alanine Aminotransferase 37 IU/L (<35); Albumin 4.8 g/dL (3.5-5.0); Albumin Globulin Ratio 1.5 (1.0-2.8); Alkaline Phosphatase 66 U/L (38-126); Aspartate Aminotransferase 61 IU/L (14-36); BUN Creatinine Ratio 22.4 (6-22); Bilirubin Total 1.5 mg/dL (0.2-1.3); Blood Urea Nitrogen 19 mg/dL (7-17); Calcium 10.1 mg/dL (8.4-10.2); Carbon Dioxide 23 mmol/L (22-32); Chloride 107 mmol/L (98-107); Cholesterol 229 mg/dL (140-199); Estimated Glomerular Filt Rate > 60 mL/min (>60); Globulin 3.3 g/dL (1.7-4.1); Glucose 98 mg/dL (80-110); HDL Cholesterol 95 mg/dL (40-60); HEMOLYSIS < 15 (0-50); LDL Cholesterol Calculated 120 mg/dL (<100); Potassium 4.1 mmol/L (3.4-5.1); Sodium 139 mmol/L (137-145); Total Protein 8.1 g/dL (6.3-8.2); Triglycerides 68 mg/dL (35-150)
[2024-03-16 16:30] LABS: TSH w/ Reflex to FT4 0.81 uIU/mL (0.47-4.68)
== END ==
PROVIDERS: PCP Family Medicine; Referring Provider Family Medicine; Visit Provider Family Medicine
DX: I10 Essential (primary) hypertension (principal); E03.9 Hypothyroidism, unspecified; E78.5 Hyperlipidemia, unspecified
CPT/HCPCS: 36415; 80053; 80061; 84443; 85025

== ENCOUNTER → 2024-05-02 12:01 | Outpatient (CLI) | payer MEDICARE, OTHER, SELFPAY ==
--- NOTE | 2024-05-02 12:02 | DI.RAD.S_ITS ---
PROCEDURE: XR DEXA AXIAL SKELETON INDICATIONS: Screening for osteoporosis COMPARISON: None. FINDINGS: Lumbar Spine: Bone mineral density 0.936 g/cm2, T score -0.7, at the lower limits of normal. Left Hip: Bone mineral density 0.848 g/cm2, T score -0.8, at the lower limits of normal. Left Femoral Neck: Bone mineral density 0.688 g/cm2, T score -1.5, osteopenia. Fracture Risk Calculation (when applicable): 10-year fracture risk of a major osteoporotic fracture 8.7 percent and of a hip fracture 0.9 percent. (T score greater or equal to -1.0 to: NORMAL) (T score from -1.1 to -2.4: OSTEOPENIA) (T score less than or equal to -2.5: OSTEOPOROSIS) IMPRESSION: 1. Osteopenia of the left femoral neck. 2. Bone mineral density of the lumbar spine and left hip at the lower limits of normal. Follow-up guidelines as follows: Osteoporosis: Consider a repeat DEXA and Vertebral Fracture Assessment (VFA) exam in 2 years or sooner if medically necessary, to reassess this patient's status. Osteopenia: Consider a repeat DEXA in 2-3 years to reassess this patient's status, or if there is a new clinical indication. Normal: Consider a repeat DEXA in 5 years or sooner, or if there is a new clinical indication. All treatment decisions require clinical judgment and consideration of individual patient factors, including patient preferences, comorbidities, previous drug use, risk factors not captured in the FRAX model (e.g., frailty, falls, vitamin D deficiency, increased bone turnover, interval significant decline in bone density ) and possible under- or over-estimation of fracture risk by FRAX. In addition, the NOF Guide recommends that FDA-approved medical therapies be considered in postmenopausal women and men age >= 50 years with a: * Hip or vertebral (clinical or morphometric) fracture * T-score of <=-2.5 at the spine or hip * Ten-year fracture probability by FRAX of >= 3% for hip fracture or >=20% for major osteoporotic fracture. People with diagnosed cases of osteoporosis or at high risk for fracture should have regular bone mineral density tests. For patients eligible for Medicare, routine testing is allowed once every 2 years. The testing frequency can be increased to one year for patients who have rapidly progressing disease, those who are receiving or discontinuing medical therapy to restore bone mass, or have additional risk factors. Dictated by: Panda Rizzo M.D. on 05/02/2024 at 16:51 Approved by: Panda Rizzo M.D. on 05/02/2024 at 16:52
--- NOTE | 2024-05-02 12:02 | DI.MG.S_ITS ---
BILATERAL DIGITAL SCREENING MAMMOGRAM 3D/2D WITH CAD: 05/02/2024 CLINICAL: Routine screening. Family history breast cancer. Comparison is made to exams dated: 04/30/2023 mammogram, 04/28/2022 mammogram, 04/26/2021 mammogram, and 03/27/2021 mammogram - [facility]. The breasts are almost entirely fatty (category a/<25% glandular tissue). Current study was also evaluated with a Computer Aided Detection (CAD) system. No significant masses, calcifications, or other findings are seen in either breast. There has been no significant interval change. IMPRESSION: NEGATIVE There is no mammographic evidence of malignancy. A 1 year screening mammogram is recommended. Based on the Tyrer Cuzick model (a risk assessment model) the patient's lifetime risk is 7.9% and her 10 year risk is 3.8%. According to the ACR, ACS, and NCCN guidelines, an annual breast MRI exam along with mammogram is recommended if the patient's lifetime risk is 20% or greater. This exam was interpreted at Station ID: [id number]. NOTE: For mammograms, a report in lay terms will be sent to the patient. Approximately 15% of breast malignancies will not be visualized mammographically. In the management of a palpable breast mass, a negative mammogram must not discourage biopsy of a clinically suspicious lesion. Electronically Signed By: Pardeep meng/mirella:05/02/2024 14:07:52 letter sent: Normal Exam ACR BI-RADS Category 1: Negative
== END ==
PROVIDERS: PCP Family Medicine; Referring Provider Family Medicine; Visit Provider Family Medicine
DX: Z12.31 Encounter for screening mammogram for malignant neoplasm of breast (principal); M85.852 Other specified disorders of bone density and structure, left thigh; Z13.820 Encounter for screening for osteoporosis; Z78.0 Asymptomatic menopausal state
CPT/HCPCS: 77063; 77067; 77080

== ENCOUNTER → 2024-05-04 11:13 | Outpatient (CLI) | payer MEDICARE, OTHER, SELFPAY ==
[2024-05-04 12:06] LABS: Hemoglobin A1C% w Est Avg Glu 5.4 % (4.0-6.0)
[2024-05-04 12:25] LABS: Alanine Aminotransferase 29 IU/L (<35); Albumin 4.9 g/dL (3.5-5.0); Albumin Globulin Ratio 1.5 (1.0-2.8); Alkaline Phosphatase 68 U/L (38-126); Aspartate Aminotransferase 46 IU/L (14-36); BUN Creatinine Ratio 14.3 (6-22); Bilirubin Total 1.7 mg/dL (0.2-1.3); Blood Urea Nitrogen 12 mg/dL (7-17); Carbon Dioxide 25 mmol/L (22-32); Chloride 104 mmol/L (98-107); Estimated Glomerular Filt Rate > 60 mL/min (>60); Globulin 3.3 g/dL (1.7-4.1); Glucose 97 mg/dL (80-110); HEMOLYSIS < 15 (0-50); Potassium 4.7 mmol/L (3.4-5.1); Sodium 137 mmol/L (137-145); Total Protein 8.2 g/dL (6.3-8.2)
== END ==
PROVIDERS: PCP Family Medicine; Referring Provider Family Medicine; Visit Provider Family Medicine
DX: R73.03 Prediabetes (principal); I10 Essential (primary) hypertension
CPT/HCPCS: 36415; 80053; 83036

== ENCOUNTER → 2024-05-05 14:40 | Outpatient (CLI) | payer MEDICARE, OTHER, SELFPAY ==
[2024-05-05 15:38] LABS: INR 1.2 (0.9-1.3); Prothrombin Time 13.1 SECONDS (9.4-12.5)
[2024-05-05 15:48] LABS: Bilirubin Direct 0.4 mg/dL (0.0-0.4); Bilirubin Total 1.8 mg/dL (0.2-1.3)
== END ==
PROVIDERS: PCP Family Medicine; Referring Provider Family Medicine; Visit Provider Family Medicine
DX: R17 Unspecified jaundice (principal); R79.89 Other specified abnormal findings of blood chemistry
CPT/HCPCS: 36415; 82247; 82248; 85610

== ENCOUNTER → 2024-05-16 07:49 | Outpatient (CLI) | payer MEDICARE, OTHER, SELFPAY ==
--- NOTE | 2024-05-16 07:51 | DI.US.S_ITS ---
PROCEDURE: US ABDOMEN LIMITED INDICATIONS: Elevated LFT's TECHNIQUE: Real-time scanning was performed of the abdominal and retroperitoneal organs, with image documentation. COMPARISON: None. FINDINGS: Liver: Diffusely heterogeneous echogenicity, with punctate hypoattenuating regions present throughout. Additionally, there are 2 hypoechoic regions the left lobe of the liver measuring 1.1 centimeter and 1.8 centimeter. Gallbladder: Absent. Biliary ducts: Intrahepatic bile ducts are non-dilated. Extrahepatic bile duct caliber measures 8 mm. Normal is 6-7 mm or less in diameter, or 10 mm or less post-cholecystectomy. Pancreas: Visualized portions of the pancreas are sonographically normal. Miscellaneous: No free abdominal fluid. IMPRESSION: Diffusely heterogeneous liver echogenicity, with punctate hypoechoic regions throughout. Additionally, there are 2 distinct liver lesions in the left hepatic lobe. Findings raise a concern for metastatic disease versus hepatocellular carcinoma. Recommend liver MRI with contrast (hepatic mass protocol with Eovist). Dictated by: Luis E Anderson M.D. on 05/16/2024 at 9:27 Approved by: Luis E Anderson M.D. on 05/16/2024 at 9:30
== END ==
PROVIDERS: PCP Family Medicine; Referring Provider Family Medicine; Visit Provider Family Medicine
DX: K76.9 Liver disease, unspecified (principal); R79.89 Other specified abnormal findings of blood chemistry; R17 Unspecified jaundice; Z90.49 Acquired absence of other specified parts of digestive tract
CPT/HCPCS: 76705

== ENCOUNTER → 2024-05-19 15:15 | Outpatient (CLI) | payer MEDICARE, OTHER, SELFPAY ==
--- NOTE | 2024-05-19 15:17 | DI.MRI.S_ITS ---
PROCEDURE: MR ABDOMEN LIVER PROTOCOL INDICATIONS: f/u on hepatic mass TECHNIQUE: Coronal HASTE, axial 2D FLASH in- and [id number]; axial breath-hold T2 FSE. Dynamic axial VIBE during the administration of contrast; post-contrast coronal VIBE or 2D FLASH with fat saturation from the hepatic dome to the iliac crests. Optional diffusion weighted imaging and ADC may be performed. COMPARISON: [facility], , US ABDOMEN LIMITED, 05/16/2024, 7:58. FINDINGS: Image quality: Diagnostic. Lung bases: Unremarkable. Liver: Cirrhosis. Single phase contrast evaluation is suboptimal for detection of hepatocellular carcinoma. At the dome of the liver, in segment 2, there are a couple of T1 hyperintense lesions measuring 1.9 and 1.0 cm. These have persistent T1 hyperintense signal on the arterial phase, and a fade on the delayed phase (series 4, image 37). These maintain contrast on the hepatobiliary phase. LR-3. In segment 8, there is a T2 intermediate lesion measuring 0.8 cm, with peripheral, discontinuous enhancement and without retention on the hepatobiliary phase; findings probably favor a benign hemangioma (series 16, image 37). Gallbladder: Absent. Biliary ducts: No biliary dilation. Pancreas: No ductal dilation. Spleen: Size is enlarged. Adrenal Glands: No adrenal nodules. Kidneys and Ureters: No hydronephrosis. No solid mass. No complex renal cystic lesion which requires follow up. Stomach and Bowel: Normal colonic caliber, without significant wall thickening. Colonic diverticulosis without evidence of diverticulitis. Peritoneum: No abnormal intraperitoneal fluid. No free air. Ventral Wall: No hernia. Abdominal Nodes: No retroperitoneal or mesenteric adenopathy by size criteria. Vessels: Aorta and inferior vena cava are normal in size. Bones: No aggressive osseous abnormality. Hepatic in angioma in the L2 vertebral body. IMPRESSION: Cirrhotic liver morphology. Mild splenomegaly, suggestive of portal hypertension. In segment 2, there are a couple of observations which demonstrate imaging characteristics most consistent with a regenerative nodule. LR-3. Recommend six-month follow-up. Consider GI referral . Additional suspected hemangioma in segment 8 of the liver. Attention on follow-up. Dictated by: Luis E Anderson M.D. on 05/20/2024 at 13:19 Approved by: Luis E Anderson M.D. on 05/20/2024 at 13:41
== END ==
PROVIDERS: PCP Family Medicine; Referring Provider Family Medicine; Visit Provider Family Medicine
DX: K76.9 Liver disease, unspecified (principal); K57.90 Diverticulosis of intestine, part unspecified, without perforation or abscess without bleeding; R79.89 Other specified abnormal findings of blood chemistry; R16.0 Hepatomegaly, not elsewhere classified; R16.1 Splenomegaly, not elsewhere classified; Z90.49 Acquired absence of other specified parts of digestive tract
CPT/HCPCS: 74183; A9579

== ENCOUNTER → 2024-05-26 12:53 | Outpatient (CLI) | payer MEDICARE, OTHER, SELFPAY ==
[2024-05-26 14:11] LABS: Lactate Dehydrogenase 171 U/L (120-246)
== END ==
LOC: LAB 12:56
PROVIDERS: PCP Family Medicine; Referring Provider Family Medicine; Visit Provider Family Medicine
DX: R17 Unspecified jaundice (principal); F10.90 Alcohol use, unspecified, uncomplicated; R79.1 Abnormal coagulation profile
CPT/HCPCS: 36415; 83615